=== PATIENT | female | born 1975 | race Caucasian/White ===

== ENCOUNTER 2018-10-30 12:45 | Emergency (ER) | payer MEDICAID ==
[~2018-10-30] VITALS: Ht 165.1 cm; Wt 82.6 kg
[2018-10-30 12:57] VITALS: Ht 165.1 cm; Wt 82.6 kg
[2018-10-30 21:12] VITALS: BP 124/77
== END 2018-10-30 21:12 | disposition home or self-care (01) ==
LOC: ED 12:45
DX: S61.213A Laceration without foreign body of left middle finger without damage to nail, initial encounter (principal); Z98.890 Other specified postprocedural states; W26.0XXA Contact with knife, initial encounter; Y93.89 Activity, other specified; Y92.89 Other specified places as the place of occurrence of the external cause; Y99.8 Other external cause status
CPT/HCPCS: 90715; J2001

== ENCOUNTER 2018-11-07 08:04 | Emergency (ER) | payer MEDICAID ==
[~2018-11-07] VITALS: Ht 160 cm; Wt 82.6 kg
[2018-11-07 08:17] VITALS: Ht 160 cm; Wt 82.6 kg
[2018-11-07 09:02] VITALS: BP 113/74
== END 2018-11-07 09:12 | disposition home or self-care (01) ==
LOC: ED 08:04
DX: S61.215D Laceration without foreign body of left ring finger without damage to nail, subsequent encounter (principal); X58.XXXD Exposure to other specified factors, subsequent encounter

== ENCOUNTER 2018-11-14 08:49 | Emergency (ER) | payer MEDICAID ==
[~2018-11-14] VITALS: Ht 162.6 cm; Wt 81.6 kg
[2018-11-14 09:11] VITALS: BP 126/73; Ht 162.6 cm; Wt 81.6 kg
== END 2018-11-14 09:59 | disposition home or self-care (01) ==
LOC: ED 08:49
DX: S61.213D Laceration without foreign body of left middle finger without damage to nail, subsequent encounter (principal)

== ENCOUNTER 2019-03-14 14:51 | Emergency (ER) | payer MEDICAID ==
[~2019-03-14] VITALS: Ht 157.5 cm; Wt 84.4 kg
[2019-03-14 15:03] VITALS: Ht 157.5 cm; Wt 84.4 kg
[2019-03-14 17:57] LABS: PLATELET COUNT 154 x10^3mcL (130-400)
[2019-03-14 18:08] LABS: RED CELL DISTRIBUTION WIDTH 16.9 % (11.5-14.5)
[2019-03-14 18:54] LABS: BAND NEUTROPHIL 1 % (0-10); BASOPHIL 0 % (0-2); MONOCYTE 3 % (0-7); PLATELET MORPHOLOGY PLATELETS NORMAL; SEGMENTED NEUTROPHILS 78 % (37-75); rbc morphology (normal/abnorm) NORMAL (NORMAL)
[2019-03-14 19:22] VITALS: BP 115/76
== END 2019-03-14 19:23 | disposition home or self-care (01) ==
LOC: ED 14:51
PROVIDERS: Emergency Medicine
DX: N93.8 Other specified abnormal uterine and vaginal bleeding (principal); Z98.890 Other specified postprocedural states
CPT/HCPCS: 36415; J1885